=== PATIENT | male | born 2000 | race Caucasian/White ===

== ENCOUNTER 2021-02-06 13:18 | Emergency (ER) | payer BC ==
--- NOTE | 2021-02-06 14:14 | EDM.PDOC ---
ED HPI GENERAL MEDICAL PROBLEM - General Chief Complaint: Eye Problems Stated Complaint: RIGHT SIDE OF FACE DROOPY Time Seen by Provider: 02/06/21 13:45 Source of Information: Reports: Patient History Limitations: Reports: No Limitations - History of Present Illness Onset: Today, Sudden Duration: Hour(s):, Getting Worse Location: Reports: Head, Face Quality: Reports: Other (numbness) Improves with: Reports: None Worsens with: Reports: None Context: Reports: Other Associated Symptoms: Reports: Other (inability to close eye, weakened right sided facial muscles) - Related Data Allergies Allergy/AdvReac Type Severity Reaction Status Date / Time ibuprofen Allergy Swelling Verified 02/06/21 13:31 Penicillins Allergy Swelling Verified 02/06/21 13:31 Home Meds: Home Meds Doxycycline [Vibra-Tabs] 100 mg PO Q12HR 21 Days #42 tab 02/06/21 [Rx] predniSONE [Prednisone] 10 mg PO DAILY 10 Days #45 tab.ds.pk 02/06/21 [Rx] Past Medical History Musculoskeletal History: Reports: Fracture Social & Family History - Tobacco Use Tobacco Use Status *Q: Current Some Day Tobacco User Years of Tobacco use: 3 Packs/Tins Daily: 1 - Caffeine Use Caffeine Use: Reports: None - Recreational Drug Use Recreational Drug Use: No ED ROS GENERAL - Review of Systems Review Of Systems: See Below Constitutional: Reports: Weakness (facial) HEENT: Reports: Rhinitis, Other (Inability to raise right eyebrow, numbness right face and cheek loss of mouth control on right side) Respiratory: Reports: No Symptoms Cardiovascular: Reports: No Symptoms Endocrine: Reports: No Symptoms GI/Abdominal: Reports: No Symptoms : Reports: No Symptoms Musculoskeletal: Reports: No Symptoms Skin: Reports: Erythema (2 spots inner aspect of distal arms) Neurological: Reports: Numbness (Right face) Psychiatric: Reports: No Symptoms Hematologic/Lymphatic: Reports: No Symptoms Immunologic: Reports: No Symptoms ED EXAM GENERAL W FULL EYE - Physical Exam Exam: See Below Text/Narrative:: Patient presents with inability to raise right eyebrow, close right eye, numbness on right face. He does state he slept under a fan last night. He did have a history 1 to 2 weeks ago of an illness with fever. He was checked at that time for flu, Covid, strep and all of these returned negative. Exam reveals Sams's palsy-like symptoms. Patient is under the age of 21 will draw blood for Lyme's disease Exam Limited By: No Limitations General Appearance: Alert, No Apparent Distress Eye Exam: Right Eye: Proptosis Pupils: Normal Accommodation Pupillary Size: Bilateral: 2 mm Pupillary Reaction: Bilateral: Brisk Ears: Normal External Exam, Other (Wax bilaterally) Nose: Normal Inspection Throat/Mouth: Normal Inspection Head: Atraumatic, Normocephalic Neck: Normal Inspection, Supple, Non-Tender Respiratory/Chest: No Respiratory Distress, Lungs Clear, Normal Breath Sounds, No Accessory Muscle Use, Chest Non-Tender Cardiovascular: Normal Peripheral Pulses, Regular Rate, Rhythm, No Edema GI/Abdominal: Normal Bowel Sounds, Soft, Non-Tender Back Exam: Normal Inspection, Full Range of Motion Extremities: Redness (Bilateral inner forearms) Neurological: Alert, Oriented. No: Normal Reflexes, Sensory/Motor Deficit (Inability for equal smile right side, inability to close eyelid completely, inability to puff out cheeks.) Psychiatric: Normal Affect Skin Exam: Warm, Dry Course - Vital Signs Last Recorded V/S: Last Vital Signs Temp 36.9 C 02/06/21 13:32 Pulse 92 02/06/21 13:32 Resp 16 02/06/21 13:32 BP 142/84 H 02/06/21 13:32 Pulse Ox 99 02/06/21 13:32 - Orders/Labs/Meds Orders: Active Orders 24 hr Category Date Time Status LYME, TOTAL AB TEST/REFLEX Stat Lab 02/06/21 13:57 Ordered Departure - Departure Time of Disposition: 14:42 Disposition: Home, Self-Care 01 Condition: Fair Clinical Impression: Sams's palsy, Acute Lyme disease - Discharge Information *PRESCRIPTION DRUG MONITORING PROGRAM REVIEWED*: Not Applicable Prescriptions: predniSONE [Prednisone] 10 mg PO DAILY 10 Days #45 tab.ds.pk Doxycycline [Vibra-Tabs] 100 mg PO Q12HR 21 Days #42 tab Instructions: Sams Palsy, Adult, Lyme Disease Referrals: PCP,None [Primary Care Provider] - Forms: ED Department Discharge Additional Instructions: Patient to follow-up with primary care provider once he returns home. In the meantime if he has any problems or concerns he may return to clinic/ER in the area where he is staying. Care Plan Goals: Patient to take medication as prescribed. Patient educated to medication awareness for doxycycline in the sun. Patient educated to take prednisone with food and take early in a.m. to prevent inability to sleep Sepsis Event Note (ED) - Evaluation Sepsis Screening Result: No Definite Risk - Focused Exam Vital Signs: Vital Signs Temp Pulse Resp BP Pulse Ox 02/06/21 13:32 36.9 C 92 16 142/84 H 99 02/06/21 13:30 36.9 C 92 16 142/84 H 99 - Problem List & Annotations (1) Sams's palsy SNOMED Code(s): 960767603 Code(s): G51.0 - SAMS'S PALSY Status: Acute - My Orders Last 24 Hours: My Active Orders 02/06/21 13:57 LYME, TOTAL AB TEST/REFLEX Stat - Assessment/Plan Last 24 Hours: My Active Orders 02/06/21 13:57 LYME, TOTAL AB TEST/REFLEX Stat
== END 2021-02-06 14:42 | disposition home or self-care (01) ==
LOC: JP.ED 13:18
DX: G51.0 Bell's palsy (principal); A69.20 Lyme disease, unspecified; Z72.0 Tobacco use; Z88.0 Allergy status to penicillin; Z88.8 Allergy status to other drugs, medicaments and biological substances
CPT/HCPCS: 99284